=== PATIENT | male | born 1980 | race Caucasian/White ===

== ENCOUNTER → 2019-12-26 09:02 | Outpatient (BNVA) | payer OTHER, SELFPAY | PROVIDERS: Family Provider Nurse Practitioner Family; PCP Nurse Practitioner Family; Visit Provider Nurse Practitioner Family | DX: E78.5 Hyperlipidemia, unspecified (principal); R60.0 Localized edema; M25.471 Effusion, right ankle; M25.472 Effusion, left ankle | CPT/HCPCS: 80053; 80061 ==